=== PATIENT | female | born 1960 | race Hispanic/Latino ===

== ENCOUNTER 2017-04-03 19:49 | Inpatient (IN) | payer OTHER, SELFPAY ==
[~2017-04-03] VITALS: Ht 154.9 cm; Wt 96.8 kg
[2017-04-03 20:37] LABS: BASOPHILS % (AUTO) 0.2 % (0.0-5.0); EOSINOPHILS % (AUTO) 0.2 % (0.0-8.0); HEMATOCRIT 38.3 % (36-48); LYMPHOCYTES % (AUTO) 9.6 % (21.0-51.0); MEAN CORPUSCULAR HEMOGLOBIN 25.6 pg (27.0-33.0); MEAN CORPUSCULAR VOLUME 77.5 fL (79-99); MONOCYTES % (AUTO) 4.7 % (3.0-13.0); NEUTROPHILS % (AUTO) 85.3 % (40.0-77.0); PLATELET COUNT (AUTO) 290 K/uL (130-400); RED BLOOD CELL COUNT(AUTO) 4.94 MIL/uL (4.00-5.50); RED CELL DISTRIBUTION WIDTH 14.8 % (11.0-15.5); WHITE BLOOD COUNT (AUTO) 15.8 K/uL (4.8-10.8)
[2017-04-03 20:45] LABS: INR 0.95 (0.85-1.15); PARTIAL THROMBOPLASTIN TIME 21.9 SEC (26.3-35.5)
[2017-04-03 21:09] LABS: CREATININE 0.9 mg/dL (0.5-1.5); POTASSIUM 3.8 mmol/L (3.5-5.1)
[2017-04-03] MEDS ORDERED: SODIUM CHLORIDE 0.9% 1000ML 2,000 ML IV ONE (21:09)
[2017-04-03] MEDS ORDERED: ONDANSETRON HCL 4 MG/2 ML VIAL ONE (21:09)
[2017-04-03] MEDS ORDERED: MORPHINE SULFATE 4 MG/1ML SYG ONE (21:10)
[2017-04-03 21:14] LABS: ALBUMIN 3.2 g/dL (3.5-5.0); BILIRUBIN,TOTAL 0.3 mg/dL (0.2-1.0); TOTAL PROTEIN, SERUM 7.6 g/dL (6.0-8.3)
[2017-04-04] MEDS ORDERED: MORPHINE SULFATE 2 MG/ML 1ML SYG ONE ×2 (00:09→02:24)
[2017-04-04] MEDS ORDERED: MEROPENEM 1 GM VIAL ONE (00:09)
[2017-04-04] MEDS ORDERED: SODIUM CHLORIDE 0.9% 1000ML 1,000 ML IV ONE ×2 (00:38→02:25)
[2017-04-04] MEDS ORDERED: POTASSIUM CHLORIDE 10% ELIXIR 20 MEQ/15 ML UDCUP PO PRN (01:30)
[2017-04-04] MEDS ORDERED: MORPHINE SULFATE 4 MG/1ML SYG IVP PRN ×2 (01:30→09:30)
[2017-04-04] MEDS ORDERED: HYDRALAZINE HCL 20 MG/ML VIAL IV PRN (01:30)
[2017-04-04] MEDS ORDERED: GLUCAGON 1MG KIT 1 MG ML IM PRN (01:30)
[2017-04-04] MEDS ORDERED: DEXTROSE 50%-WATER 50 ML DISP.SYRIN IV PRN (01:30)
[2017-04-04 04:00] VITALS: BP 132/73
[2017-04-04 04:09] LABS: APPEARANCE,URINE Clear (CLEAR); BILIRUBIN,URINE Negative (NEGATIVE); COLOR,URINE Yellow (YELLOW); GLUCOSE, URINE (UA) Negative (NEGATIVE); KETONES,URINE Negative (NEGATIVE); LEUKOCYTE ESTERASE ,URINE Trace (NEGATIVE); NITRATE,URINE Negative (NEGATIVE); OCCULT BLOOD,URINE Trace (NEGATIVE); PROTEIN,URINE Negative (NEGATIVE); UROBILINOGEN,URINE 0.2 mg/dL (0.2-1.0)
[2017-04-04 04:24] LABS: BACTERIA,URINE Few /HPF (None Seen); MUCUS,URINE Many LPF (None Seen); RBC,URINE 0-1 /HPF (0-1); SQUAMOUS EPITHELIAL CELL,UR Moderate /LPF (0-2)
[2017-04-04 04:25] LABS: AMORPHOUS SEDIMENT,UR Moderate /LPF (None Seen)
[2017-04-04] MEDS ORDERED: MEROPENEM 500 MG VIAL IVP SCH (06:00)
[2017-04-04] MEDS ORDERED: MEROPENEM 500MG+NS 50ML 50 ML IV SCH (06:00)
[2017-04-04 06:20] LABS: BASOPHILS % (AUTO) 0.2 % (0.0-5.0); HEMATOCRIT 36.1 % (36-48); LYMPHOCYTES % (AUTO) 6.7 % (21.0-51.0); MEAN CORPUSCULAR HEMOGLOBIN 25.4 pg (27.0-33.0); MEAN CORPUSCULAR HGB CONC 32.6 g/dL (32.0-36.0); MONOCYTES % (AUTO) 5.8 % (3.0-13.0); NEUTROPHILS % (AUTO) 87.3 % (40.0-77.0); PLATELET COUNT (AUTO) 288 K/uL (130-400); RED BLOOD CELL COUNT(AUTO) 4.62 MIL/uL (4.00-5.50); WHITE BLOOD COUNT (AUTO) 15.1 K/uL (4.8-10.8)
[2017-04-04 06:28] LABS: CREATININE 0.8 mg/dL (0.5-1.5)
[2017-04-04] MEDS: INSULIN HUMULIN R 100 UNIT/ML 3ML SQ SCH ×4 (06:28→23:00)
[2017-04-04] MEDS: MORPHINE SULFATE 2 MG/ML 1ML SYG IVP PRN ×3 (06:29→22:09)
[2017-04-04 07:00] VITALS: BP 127/71
[2017-04-04] MEDS: SODIUM CHLORIDE 0.9% 1000ML 1,000 ML IV SCH ×4 (09:23→20:30)
[2017-04-04] MEDS ORDERED: MORPHINE SULFATE 2 MG/ML 1ML SYG IVP PRN (09:30)
[2017-04-04] MEDS ORDERED: ACETAMINOPHEN-CODEINE 300/30MG TAB PO PRN (09:30)
[2017-04-04] MEDS: MEROPENEM 500 MG VIAL IVP SCH ×3 (10:57→23:54)
[2017-04-04 11:00] VITALS: BP 135/89
[2017-04-04 16:00] VITALS: BP 127/67
[2017-04-04 19:31] VITALS: BP 147/74
[2017-04-04 23:26] VITALS: BP 108/57
[2017-04-05 04:53] VITALS: BP 134/77
[2017-04-05 05:46] LABS: BASOPHILS % (AUTO) 0.3 % (0.0-5.0); HEMATOCRIT 33.4 % (36-48); LYMPHOCYTES % (AUTO) 7.3 % (21.0-51.0); MEAN CORPUSCULAR HEMOGLOBIN 25.5 pg (27.0-33.0); MEAN CORPUSCULAR HGB CONC 32.5 g/dL (32.0-36.0); MEAN CORPUSCULAR VOLUME 78.4 fL (79-99); MONOCYTES % (AUTO) 4.5 % (3.0-13.0); NEUTROPHILS % (AUTO) 87.9 % (40.0-77.0); PLATELET COUNT (AUTO) 258 K/uL (130-400); RED BLOOD CELL COUNT(AUTO) 4.26 MIL/uL (4.00-5.50); RED CELL DISTRIBUTION WIDTH 15.4 % (11.0-15.5); WHITE BLOOD COUNT (AUTO) 16.5 K/uL (4.8-10.8)
[2017-04-05 06:02] LABS: CREATININE 0.7 mg/dL (0.5-1.5); POTASSIUM 3.5 mmol/L (3.5-5.1)
[2017-04-05] MEDS: INSULIN HUMULIN R 100 UNIT/ML 3ML SQ SCH ×4 (06:44→21:00)
[2017-04-05] MEDS: POTASSIUM CHLORIDE 20MEQ/100ML 100 ML IV PRN (06:45)
[2017-04-05] MEDS: LIDOCAINE HCL-MPF 1% 2ML VIAL IVP PRN (06:45)
[2017-04-05 08:02] VITALS: BP 118/66
[2017-04-05] MEDS: KETOROLAC TROMETHAMINE 15MG/ML IV PRN (09:14)
[2017-04-05] MEDS: MEROPENEM 500 MG VIAL IVP SCH (09:14)
[2017-04-05] MEDS: ENOXAPARIN SODIUM 40 MG/0.4 ML SYRINGE SQ SCH (09:15)
[2017-04-05] MEDS ORDERED: DIATR MEGLU/DIATRIZOATE SODIUM 30 ML BOTTLE PO ONE (10:07)
[2017-04-05 11:32] VITALS: BP 131/79
[2017-04-05] MEDS ORDERED: IOPAMIDOL-370 75 ML VIAL IV ONE (12:40)
[2017-04-05] MEDS: LACTATED RINGERS 1000ML 1,000 ML IV SCH ×2 (13:00→21:29)
[2017-04-05] MEDS ORDERED: CEFTAZIDIME 1GM+NS 50ML 50 ML IV SCH (13:00)
[2017-04-05] MEDS ORDERED: LACTATED RINGERS 1000ML 1,000 ML IV ONE (13:02)
[2017-04-05] MEDS ORDERED: METRONIDAZOLE 500MG/100ML BAG 100 ML IV SCH ×2 (14:00→20:00)
[2017-04-05] MEDS: CEFTAZIDIME PENTAHYDRATE 1 GM/VIAL IVP SCH ×2 (14:56→21:28)
[2017-04-05] MEDS: METRONIDAZOLE 500MG/100ML BAG 100 ML IV SCH ×2 (15:25→21:28)
[2017-04-05] MEDS: ACETAMINOPHEN 325 MG TAB PO PRN (16:26)
[2017-04-05 16:54] VITALS: BP 139/84
[2017-04-05 20:08] VITALS: BP 117/72
[2017-04-06] VITALS (22 sets, daily range): BP systolic 97–148; BP diastolic 57–89
[2017-04-06] MEDS: METRONIDAZOLE 500MG/100ML BAG 100 ML IV SCH ×5 (03:18→21:15)
[2017-04-06] MEDS: KETOROLAC TROMETHAMINE 15MG/ML IV PRN ×2 (05:27→11:27)
[2017-04-06] MEDS: CEFTAZIDIME PENTAHYDRATE 1 GM/VIAL IVP SCH ×4 (05:29→22:15)
[2017-04-06] MEDS: LACTATED RINGERS 1000ML 1,000 ML IV SCH ×3 (05:30→21:00)
[2017-04-06 06:06] LABS: BASOPHILS % (AUTO) 0.1 % (0.0-5.0); EOSINOPHILS % (AUTO) 0.1 % (0.0-8.0); HEMATOCRIT 34.1 % (36-48); LYMPHOCYTES % (AUTO) 8.2 % (21.0-51.0); MEAN CORPUSCULAR HEMOGLOBIN 25.1 pg (27.0-33.0); MEAN CORPUSCULAR HGB CONC 32.3 g/dL (32.0-36.0); MEAN CORPUSCULAR VOLUME 77.8 fL (79-99); NEUTROPHILS % (AUTO) 86.6 % (40.0-77.0); PLATELET COUNT (AUTO) 269 K/uL (130-400); RED BLOOD CELL COUNT(AUTO) 4.38 MIL/uL (4.00-5.50); RED CELL DISTRIBUTION WIDTH 14.9 % (11.0-15.5); WHITE BLOOD COUNT (AUTO) 13.2 K/uL (4.8-10.8)
[2017-04-06 06:18] LABS: CREATININE 0.7 mg/dL (0.5-1.5); POTASSIUM 3.4 mmol/L (3.5-5.1)
[2017-04-06] MEDS: INSULIN HUMULIN R 100 UNIT/ML 3ML SQ SCH ×4 (06:37→20:00)
[2017-04-06] MEDS: ENOXAPARIN SODIUM 40 MG/0.4 ML SYRINGE SQ SCH (08:55)
[2017-04-06] MEDS: POTASSIUM CHLORIDE 20MEQ/100ML 100 ML IV PRN (09:26)
[2017-04-06] MEDS: LIDOCAINE HCL-MPF 1% 2ML VIAL IVP PRN (09:30)
[2017-04-06] MEDS: ACETAMINOPHEN 325 MG TAB PO PRN (11:24)
[2017-04-06] MEDS: MORPHINE SULFATE 2 MG/ML 1ML SYG IVP PRN (15:40)
[2017-04-06] MEDS ORDERED: ONDANSETRON HCL 4 MG/2 ML VIAL ONE (20:31)
[2017-04-06] MEDS ORDERED: ROCURONIUM BROMIDE 10MG/1ML 5ML VL ONE (20:31)
[2017-04-06] MEDS ORDERED: SUCCINYLCHOLINE 200MG/10ML SYR ONE (20:31)
[2017-04-06] MEDS ORDERED: MIDAZOLAM HCL 1 MG/ML 2ML VIAL ONE (20:32)
[2017-04-06] MEDS ORDERED: FENTANYL CITRATE PF 50 MCG/1 ML 2ML VIAL ONE (20:32)
[2017-04-06] MEDS ORDERED: PROPOFOL 10 MG/ML 20ML VIAL IV ONE (20:32)
[2017-04-06] MEDS ORDERED: FENTANYL CITRATE PF 50 MCG/1 ML 5ML AMP IV ONE (21:05)
[2017-04-06] MEDS ORDERED: DEXAMETHASONE SOD PHOSPHATE 4 MG/ML 1ML VIAL ONE (21:45)
[2017-04-06] MEDS ORDERED: GLYCOPYRROLATE 0.2 MG/ML 5 ML VIAL ONE (22:12)
[2017-04-06] MEDS ORDERED: NEOSTIGMINE 5MG/5ML SYR IV ONE (22:13)
[2017-04-06] MEDS ORDERED: MEPERIDINE-PF 50 MG/ML SYG ONE (23:04)
[2017-04-07] VITALS (14 sets, daily range): BP systolic 99–121; BP diastolic 62–76
[2017-04-07] MEDS: LACTATED RINGERS 1000ML 1,000 ML IV SCH ×4 (00:20→18:41)
[2017-04-07] MEDS: METRONIDAZOLE 500MG/100ML BAG 100 ML IV SCH ×4 (03:00→21:51)
[2017-04-07] MEDS: KETOROLAC TROMETHAMINE 15MG/ML IV PRN (05:38)
[2017-04-07] MEDS: CEFTAZIDIME PENTAHYDRATE 1 GM/VIAL IVP SCH ×3 (05:38→15:10)
[2017-04-07 05:44] LABS: HEMATOCRIT 33.5 % (36-48); MEAN CORPUSCULAR HEMOGLOBIN 25.3 pg (27.0-33.0); MEAN CORPUSCULAR HGB CONC 32.6 g/dL (32.0-36.0); MEAN CORPUSCULAR VOLUME 77.8 fL (79-99); PLATELET COUNT (AUTO) 320 K/uL (130-400); RED CELL DISTRIBUTION WIDTH 15.1 % (11.0-15.5); WHITE BLOOD COUNT (AUTO) 15.1 K/uL (4.8-10.8)
[2017-04-07 05:55] LABS: CREATININE 0.9 mg/dL (0.5-1.5); POTASSIUM 4.1 mmol/L (3.5-5.1)
[2017-04-07] MEDS: INSULIN HUMULIN R 100 UNIT/ML 3ML SQ SCH ×4 (05:58→21:00)
[2017-04-07] MEDS: ACETAMINOPHEN-CODEINE 300/30MG TAB PO PRN (06:38)
[2017-04-07] MEDS: HYDROMORPHONE PCA 10 MG/50 ML 50 ML IV PRN (07:53)
[2017-04-07] MEDS ORDERED: LACTATED RINGERS 1000ML IV SCH ×2 (09:15→17:30)
[2017-04-07] MEDS ORDERED: LACTATED RINGERS 1000ML 1,000 ML IV SCH (09:30)
[2017-04-07] MEDS: FAMOTIDINE/PF 20 MG/2 ML VIAL IV SCH ×2 (10:05→21:51)
[2017-04-07] MEDS: ENOXAPARIN SODIUM 40 MG/0.4 ML SYRINGE SQ SCH (10:05)
[2017-04-07] MEDS ORDERED: PHARMACY COMMUNICATION MISC SCH (15:15)
[2017-04-07] MEDS ORDERED: ACETAMINOPHEN 325 MG TAB PO PRN (17:30)
[2017-04-07] MEDS ORDERED: TRAMADOL HCL 50 MG TABLET PO PRN (17:30)
[2017-04-08] MEDS: ONDANSETRON HCL 4 MG/2 ML VIAL IVP PRN (01:01)
[2017-04-08] MEDS: CEFTAZIDIME PENTAHYDRATE 1 GM/VIAL IVP SCH ×3 (01:01→16:00)
[2017-04-08] MEDS: METRONIDAZOLE 500MG/100ML BAG 100 ML IV SCH ×4 (03:25→21:04)
[2017-04-08] MEDS: LACTATED RINGERS 1000ML 1,000 ML IV SCH ×2 (03:39→13:26)
[2017-04-08 04:00] VITALS: BP 123/83
[2017-04-08 05:31] LABS: HEMATOCRIT 30.4 % (36-48); MEAN CORPUSCULAR HGB CONC 33.7 g/dL (32.0-36.0); MEAN CORPUSCULAR VOLUME 77.3 fL (79-99); NUCLEATED RED BLOOD CELLS 0.1 % (0.0-0.19); PLATELET COUNT (AUTO) 340 K/uL (130-400); RED BLOOD CELL COUNT(AUTO) 3.94 MIL/uL (4.00-5.50); RED CELL DISTRIBUTION WIDTH 14.9 % (11.0-15.5); WHITE BLOOD COUNT (AUTO) 12.4 K/uL (4.8-10.8)
[2017-04-08 05:38] LABS: CREATININE 0.7 mg/dL (0.5-1.5); POTASSIUM 3.5 mmol/L (3.5-5.1)
[2017-04-08] MEDS: INSULIN HUMULIN R 100 UNIT/ML 3ML SQ SCH ×4 (06:34→21:00)
[2017-04-08] MEDS: POTASSIUM CHLORIDE 20 MEQ ERTAB PO PRN ×2 (06:51→18:59)
[2017-04-08 07:45] VITALS: BP 106/74
[2017-04-08] MEDS: ENOXAPARIN SODIUM 40 MG/0.4 ML SYRINGE SQ SCH (10:02)
[2017-04-08] MEDS: FAMOTIDINE/PF 20 MG/2 ML VIAL IV SCH ×2 (10:04→21:04)
[2017-04-08 12:00] VITALS: BP 101/66
[2017-04-08 16:00] VITALS: BP 130/83
[2017-04-08 20:01] VITALS: BP 144/91
[2017-04-09] VITALS (7 sets, daily range): BP systolic 134–148; BP diastolic 76–92
[2017-04-09] MEDS: CEFTAZIDIME PENTAHYDRATE 1 GM/VIAL IVP SCH ×3 (00:20→16:32)
[2017-04-09] MEDS: LACTATED RINGERS 1000ML 1,000 ML IV SCH ×3 (00:21→09:34)
[2017-04-09] MEDS: METRONIDAZOLE 500MG/100ML BAG 100 ML IV SCH ×4 (03:24→20:54)
[2017-04-09 05:09] LABS: HEMATOCRIT 33.5 % (36-48); MEAN CORPUSCULAR HEMOGLOBIN 25.9 pg (27.0-33.0); MEAN CORPUSCULAR HGB CONC 33.5 g/dL (32.0-36.0); MEAN CORPUSCULAR VOLUME 77.3 fL (79-99); PLATELET COUNT (AUTO) 402 K/uL (130-400); RED BLOOD CELL COUNT(AUTO) 4.33 MIL/uL (4.00-5.50); RED CELL DISTRIBUTION WIDTH 14.9 % (11.0-15.5); WHITE BLOOD COUNT (AUTO) 9.3 K/uL (4.8-10.8)
[2017-04-09 05:14] LABS: CREATININE 0.7 mg/dL (0.5-1.5); POTASSIUM 3.1 mmol/L (3.5-5.1)
[2017-04-09] MEDS: INSULIN HUMULIN R 100 UNIT/ML 3ML SQ SCH ×4 (06:08→20:50)
[2017-04-09] MEDS: ONDANSETRON HCL 4 MG/2 ML VIAL IVP PRN (06:20)
[2017-04-09] MEDS: POTASSIUM CHLORIDE 20 MEQ ERTAB PO PRN ×3 (06:20→16:33)
[2017-04-09] MEDS: HYDROMORPHONE PCA 10 MG/50 ML 50 ML IV PRN (06:21)
[2017-04-09] MEDS: ENOXAPARIN SODIUM 40 MG/0.4 ML SYRINGE SQ SCH (09:22)
[2017-04-09] MEDS: FAMOTIDINE/PF 20 MG/2 ML VIAL IV SCH ×2 (09:22→20:54)
[2017-04-09] MEDS ORDERED: MAGNESIUM HYDROXIDE 30 ML/UDCUP PO PRN (11:15)
[2017-04-09] MEDS ORDERED: MEPERIDINE HCL/PF 25 MG/0.5 ML AMPUL IVP PRN (17:45)
[2017-04-09] MEDS: MAGNESIUM HYDROXIDE 30 ML/UDCUP PO SCH ×2 (18:41→20:48)
[2017-04-09] MEDS: ACETAMINOPHEN-CODEINE 300/30MG TAB PO PRN (21:29)
[2017-04-10] MEDS: CEFTAZIDIME PENTAHYDRATE 1 GM/VIAL IVP SCH ×2 (00:14→09:55)
[2017-04-10] MEDS: METRONIDAZOLE 500MG/100ML BAG 100 ML IV SCH ×2 (03:29→09:56)
[2017-04-10 04:11] VITALS: BP 145/80
[2017-04-10] MEDS: INSULIN HUMULIN R 100 UNIT/ML 3ML SQ SCH ×2 (06:45→11:30)
[2017-04-10] MEDS: ACETAMINOPHEN 325 MG TAB PO PRN (07:03)
[2017-04-10 08:00] VITALS: BP 136/76
[2017-04-10] MEDS: MAGNESIUM HYDROXIDE 30 ML/UDCUP PO SCH (09:54)
[2017-04-10] MEDS: FAMOTIDINE/PF 20 MG/2 ML VIAL IV SCH (09:55)
[2017-04-10] MEDS: ENOXAPARIN SODIUM 40 MG/0.4 ML SYRINGE SQ SCH (09:55)
[2017-04-10 11:54] VITALS: BP 111/57
== END 2017-04-10 15:45 | disposition home or self-care (01) | DRG 854 ==
LOC: EDH 19:49 → EDHIP 19:50 → 4CH 04-04 02:36
PROVIDERS: ADMIT Internal Medicine; ATTEND Internal Medicine
PROC: 0DTN0ZZ Resection of Sigmoid Colon, Open Approach (ICD-10-PCS; principal; 2017-04-06 20:35)
PROC: 0D1M0Z4 Bypass Descending Colon to Cutaneous, Open Approach (ICD-10-PCS; 2017-04-06 20:35)
PROC: 0DTJ0ZZ Resection of Appendix, Open Approach (ICD-10-PCS; 2017-04-06 20:35)
DX: A41.9 Sepsis, unspecified organism (principal); K57.20 Diverticulitis of large intestine with perforation and abscess without bleeding; E66.01 Morbid (severe) obesity due to excess calories; Z68.41 Body mass index [BMI] 40.0-44.9, adult; J45.909 Unspecified asthma, uncomplicated; G89.29 Other chronic pain; K52.9 Noninfective gastroenteritis and colitis, unspecified; M25.529 Pain in unspecified elbow; Z90.49 Acquired absence of other specified parts of digestive tract
CPT/HCPCS: 36415; 74176; 74178; 80048; 80053; 81001; 82150; 82948; 83690; 85025; 85027; 85610; 85730; 87070; 87076; 87205; 88302; 88307; A4218; A4344; A5061; A6250; J0330; J0713; J1100; J1170; J1650; J1885; J2175; J2185; J2250; J2270; J2405; J2704; J2710; J3010; J3480; J3490; J7030; J7120; Q9963; Q9967

== ENCOUNTER 2020-06-25 20:07 | Inpatient (IN) | payer OTHER, SELFPAY ==
[~2020-06-25] VITALS: Ht 154.9 cm; Wt 92.6 kg
[2020-06-25] MEDS ORDERED: ONDANSETRON HCL 4 MG/2 ML VIAL ONE (20:20)
[2020-06-25] MEDS ORDERED: METOCLOPRAMIDE 10 MG/2 ML VIAL ONE (20:20)
[2020-06-25] MEDS ORDERED: MORPHINE SULFATE 4 MG/1ML SYG ONE (20:21)
[2020-06-25] MEDS ORDERED: FAMOTIDINE/PF 20 MG/2 ML VIAL IV ONE (20:21)
[2020-06-25] MEDS ORDERED: PANTOPRAZOLE 40 MG/VIAL ONE (20:21)
[2020-06-25] MEDS ORDERED: SODIUM CHLORIDE 0.9% 1000ML 1,000 ML IV ONE (20:22)
[2020-06-25 20:40] LABS: BASOPHILS % (AUTO) 0.4 % (0.0-5.0); EOSINOPHILS % (AUTO) 0.8 % (0.0-8.0); LYMPHOCYTES % (AUTO) 31.5 % (21.0-51.0); MEAN CORPUSCULAR HEMOGLOBIN 25.9 pg (27.0-33.0); MEAN CORPUSCULAR HGB CONC 32.2 g/dL (32.0-36.0); MEAN CORPUSCULAR VOLUME 80.4 fL (79-99); MONOCYTES % (AUTO) 5.9 % (3.0-13.0); NEUTROPHILS % (AUTO) 60.7 % (40.0-77.0); PLATELET COUNT (AUTO) 310 K/uL (130-400); RED BLOOD CELL COUNT(AUTO) 5.72 MIL/uL (4.00-5.50); RED CELL DISTRIBUTION WIDTH 14.2 % (11.0-15.5); WHITE BLOOD COUNT (AUTO) 12.3 K/uL (4.8-10.8)
[2020-06-25 20:52] LABS: PROTHROMBIN TIME 10.9 SEC (9.6-11.6)
[2020-06-25 20:53] LABS: PARTIAL THROMBOPLASTIN TIME 23.1 SEC (26.3-35.5)
[2020-06-25 20:55] LABS: ALBUMIN 3.9 g/dL (3.5-5.0); BILIRUBIN,TOTAL 0.3 mg/dL (0.2-1.0); TOTAL PROTEIN, SERUM 8.6 g/dL (6.0-8.3)
[2020-06-25 21:08] LABS: POTASSIUM 2.9 mmol/L (3.5-5.1)
[2020-06-25] MEDS ORDERED: IOHEXOL 350 MG/ML 100ML INFUS..BTL IV ONE (21:30)
[2020-06-25 22:01] LABS: APPEARANCE,URINE Clear (CLEAR); BILIRUBIN,URINE Negative (NEGATIVE); COLOR,URINE Yellow (YELLOW); GLUCOSE, URINE (UA) Negative (NEGATIVE); KETONES,URINE Trace mg/dL (NEGATIVE); LEUKOCYTE ESTERASE ,URINE Trace (NEGATIVE); NITRATE,URINE Negative (NEGATIVE); OCCULT BLOOD,URINE Small (NEGATIVE); PROTEIN,URINE 300 mg/dL (NEGATIVE); UROBILINOGEN,URINE 0.2 mg/dL (0.2-1.0)
[2020-06-25 22:08] LABS: BACTERIA,URINE Few /HPF (None Seen); MUCUS,URINE Few LPF (None Seen); SQUAMOUS EPITHELIAL CELL,UR Few /HPF (0-2)
[2020-06-25] MEDS ORDERED: FENTANYL CITRATE PF 50 MCG/1 ML 2ML VIAL ONE (22:13)
[2020-06-25] MEDS ORDERED: MAGNESIUM 2GM PREMIX 50ML 50 ML IV PRN (22:45)
[2020-06-25] MEDS: LACTATED RINGERS 1000ML 1,000 ML IV SCH (22:45)
[2020-06-25] MEDS ORDERED: LIDOCAINE HCL-MPF 1% 2ML VIAL IV PRN (22:45)
[2020-06-25] MEDS ORDERED: MORPHINE SULFATE 2 MG/ML 1ML SYG IV PRN (22:45)
[2020-06-25] MEDS ORDERED: POTASSIUM CHLORIDE 20MEQ/100ML 100 ML IV PRN (22:45)
[2020-06-25] MEDS ORDERED: ONDANSETRON HCL 4 MG/2 ML VIAL IV PRN (22:45)
[2020-06-26] MEDS ORDERED: POTASSIUM CHLORIDE 20MEQ/100ML 200 ML IV ONE (01:23)
[2020-06-26] MEDS ORDERED: LEVOFLOXACIN 500 MG/D5W 100 ML 100 ML ONE (01:24)
[2020-06-26 05:43] LABS: MEAN CORPUSCULAR HEMOGLOBIN 25.3 pg (27.0-33.0); MEAN CORPUSCULAR HGB CONC 31.6 g/dL (32.0-36.0); MEAN CORPUSCULAR VOLUME 80.1 fL (79-99); RED BLOOD CELL COUNT(AUTO) 5.49 MIL/uL (4.00-5.50); RED CELL DISTRIBUTION WIDTH 14.2 % (11.0-15.5); WHITE BLOOD COUNT (AUTO) 10.6 K/uL (4.8-10.8)
[2020-06-26 06:08] LABS: ALBUMIN 3.3 g/dL (3.5-5.0); BILIRUBIN,TOTAL 0.3 mg/dL (0.2-1.0); CREATININE 0.8 mg/dL (0.5-1.5); MAGNESIUM 1.6 mg/dL (1.80-2.40); POTASSIUM 4.4 mmol/L (3.5-5.1); TOTAL PROTEIN, SERUM 7.7 g/dL (6.0-8.3)
[2020-06-26] MEDS: LACTATED RINGERS 1000ML 1,000 ML IV SCH (08:45)
[2020-06-26] MEDS ORDERED: METOCLOPRAMIDE 10 MG/2 ML VIAL ONE (09:40)
[2020-06-26] MEDS ORDERED: LACTATED RINGERS 1000ML 1,000 ML IV ONE (09:41)
[2020-06-26] MEDS ORDERED: MAGNESIUM 2GM PREMIX 50ML 50 ML IV ONE (09:41)
[2020-06-26] MEDS ORDERED: FAMOTIDINE/PF 20 MG/2 ML VIAL IV ONE (09:41)
[2020-06-26] MEDS: FAMOTIDINE/PF 20 MG/2 ML VIAL IV SCH ×2 (21:00→22:32)
[2020-06-26] MEDS: METOCLOPRAMIDE 10 MG/2 ML VIAL IVP SCH ×2 (21:00→22:33)
[2020-06-26 21:45] VITALS: BP 160/83
[2020-06-26] MEDS: LEVOFLOXACIN 500 MG/D5W 100 ML 100 ML IV SCH ×2 (22:33→22:45)
[2020-06-26 23:39] VITALS: BP 139/83
[2020-06-27 03:49] VITALS: BP 148/88
[2020-06-27] MEDS: LACTATED RINGERS 1000ML 1,000 ML IV SCH ×2 (04:45→14:45)
[2020-06-27 05:36] LABS: BASOPHILS % (AUTO) 0.4 % (0.0-5.0); EOSINOPHILS % (AUTO) 0.9 % (0.0-8.0); HEMATOCRIT 42.3 % (36-48); LYMPHOCYTES % (AUTO) 28.4 % (21.0-51.0); MEAN CORPUSCULAR HEMOGLOBIN 25.4 pg (27.0-33.0); MEAN CORPUSCULAR HGB CONC 31.2 g/dL (32.0-36.0); MEAN CORPUSCULAR VOLUME 81.5 fL (79-99); MONOCYTES % (AUTO) 9.2 % (3.0-13.0); NEUTROPHILS % (AUTO) 60.7 % (40.0-77.0); PLATELET COUNT (AUTO) 240 K/uL (130-400); RED BLOOD CELL COUNT(AUTO) 5.19 MIL/uL (4.00-5.50); RED CELL DISTRIBUTION WIDTH 14.6 % (11.0-15.5); WHITE BLOOD COUNT (AUTO) 8.1 K/uL (4.8-10.8)
[2020-06-27 05:51] LABS: ALBUMIN 2.9 g/dL (3.5-5.0); BILIRUBIN,TOTAL 0.5 mg/dL (0.2-1.0); CREATININE 0.9 mg/dL (0.5-1.5); MAGNESIUM 2.2 mg/dL (1.80-2.40); POTASSIUM 4.1 mmol/L (3.5-5.1)
[2020-06-27 08:00] VITALS: BP 132/83
[2020-06-27] MEDS: FAMOTIDINE/PF 20 MG/2 ML VIAL IV SCH ×2 (10:15→20:00)
[2020-06-27 12:00] VITALS: BP_SYST 132; BP_SYST 141; BP_DIAS 55; BP_DIAS 85
[2020-06-27] MEDS: MAGNESIUM HYDROXIDE 30 ML/UDCUP PO SCH (12:30)
[2020-06-27] MEDS: LACTULOSE 20 GM/30 ML UDCUP PO SCH (12:32)
[2020-06-27 16:00] VITALS: BP 140/65
[2020-06-27 19:40] VITALS: BP 163/92
[2020-06-27] MEDS: LEVOFLOXACIN 500 MG/D5W 100 ML 100 ML IV SCH (20:00)
[2020-06-28 00:27] VITALS: BP 115/62
[2020-06-28] MEDS: LACTATED RINGERS 1000ML 1,000 ML IV SCH (03:03)
[2020-06-28 04:13] VITALS: BP 115/59
[2020-06-28 05:59] LABS: BASOPHILS % (AUTO) 0.3 % (0.0-5.0); HEMATOCRIT 43.8 % (36-48); LYMPHOCYTES % (AUTO) 25.2 % (21.0-51.0); MEAN CORPUSCULAR HEMOGLOBIN 25.6 pg (27.0-33.0); MEAN CORPUSCULAR HGB CONC 31.3 g/dL (32.0-36.0); MEAN CORPUSCULAR VOLUME 81.9 fL (79-99); MONOCYTES % (AUTO) 7.4 % (3.0-13.0); NEUTROPHILS % (AUTO) 65.8 % (40.0-77.0); PLATELET COUNT (AUTO) 240 K/uL (130-400); RED BLOOD CELL COUNT(AUTO) 5.35 MIL/uL (4.00-5.50); RED CELL DISTRIBUTION WIDTH 14.6 % (11.0-15.5); WHITE BLOOD COUNT (AUTO) 8.7 K/uL (4.8-10.8)
[2020-06-28 06:13] LABS: CREATININE 0.8 mg/dL (0.5-1.5); MAGNESIUM 2.3 mg/dL (1.80-2.40); POTASSIUM 4.1 mmol/L (3.5-5.1)
[2020-06-28] MEDS: FAMOTIDINE/PF 20 MG/2 ML VIAL IV SCH (08:42)
[2020-06-28 08:44] VITALS: BP 131/77
[2020-06-28 11:41] VITALS: BP 139/77
[2020-06-28] MEDS: LACTULOSE 20 GM/30 ML UDCUP PO SCH (11:45)
[2020-06-28] MEDS: MAGNESIUM HYDROXIDE 30 ML/UDCUP PO SCH (11:45)
[2020-06-28 16:20] VITALS: BP 162/75
== END 2020-06-28 18:19 | disposition home or self-care (01) | DRG 395 ==
LOC: EDH 20:07 → EDHIP 20:08 → 3CH 06-26 19:34
PROVIDERS: ADMIT Internal Medicine; ATTEND Internal Medicine
PROC: 0D9670Z Drainage of Stomach with Drainage Device, Via Natural or Artificial Opening (ICD-10-PCS; principal; 2020-06-25)
DX: K43.6 Other and unspecified ventral hernia with obstruction, without gangrene (principal); E86.0 Dehydration; E87.6 Hypokalemia; I10 Essential (primary) hypertension; E66.9 Obesity, unspecified; J45.909 Unspecified asthma, uncomplicated; Z90.49 Acquired absence of other specified parts of digestive tract; Z82.49 Family history of ischemic heart disease and other diseases of the circulatory system; Z68.38 Body mass index [BMI] 38.0-38.9, adult
CPT/HCPCS: 36415; 74021; 74177; 80048; 80053; 81001; 83605; 83690; 83735; 84484; 85025; 85027; 85610; 85730; 93005; C9113; G0378; J1956; J2270; J2405; J2765; J3010; J3475; J3480; J3490; J7030; J7120; Q9967